=== PATIENT | female | born 1930 | race Caucasian/White ===

== ENCOUNTER 2019-09-05 10:28 | Emergency (ER) | payer MEDICARE, BC ==
--- NOTE | 2019-09-05 11:50 | EDM.PDOC ---
ED HPI GENERAL MEDICAL PROBLEM - General Chief Complaint: General Stated Complaint: fall from chair, hit head Time Seen by Provider: 09/05/19 11:06 Source of Information: Reports: Other History Limitations: Reports: Other (Cognitive impairment/mild dementia) - History of Present Illness INITIAL COMMENTS - FREE TEXT/NARRATIVE: Patient sent here from [facility] to be checked out after she slipped out of a chair to the ground. Did bump head on floor in process. Patient is without any complaints during initial interview. At one point she complained to the nurse that her buttocks were sore from a fall. Is pleasantly confused. Nurse did speak to patient's son and son has noticed that patient's dementia has been progressing. - Related Data Allergies Allergy/AdvReac Type Severity Reaction Status Date / Time Sulfa (Sulfonamide Allergy Itching Verified 09/05/19 10:35 Antibiotics) Home Meds: Home Meds Acetaminophen [Tylenol Arthritis] 650 mg PO TID PRN 03/20/18 [History] Amitriptyline [Elavil] 10 mg PO BEDTIME 03/20/18 [History] Donepezil [Aricept] 5 mg PO BEDTIME 03/20/18 [History] Glucosam/Chondr/Collagn/Hyalur [Glucosamine & Chondroitin Cap] 1 each PO DAILY 03/20/18 [History] Memantine [Namenda] 10 mg PO BID 03/20/18 [History] Multivitamin [Daily Multiple Vitamin] 1 tab PO DAILY 03/20/18 [History] Ubidecarenone [Coenzyme Q10] 100 mg PO DAILY 03/20/18 [History] Vit A/C/E/Zinc/Selenium/Copper [Vision Formula Tablet] 1 each PO DAILY 03/20/18 [History] Wheat Dextrin [Benefiber] 2 tbs PO DAILY 03/20/18 [History] dilTIAZem HCL [Diltiazem ER] 240 mg PO QAM 03/20/18 [History] Nystatin [Nystop] 1 applic TOP ASDIRECTED PRN 09/05/19 [History] OLANZapine [Olanzapine] 2.5 mg PO DAILY 09/05/19 [History] Sertraline HCl [Zoloft] 50 mg PO BEDTIME 09/05/19 [History] Past Medical History HEENT History: Reports: Hard of Hearing, Impaired Vision Cardiovascular History: Reports: Hypertension Musculoskeletal History: Reports: Osteoarthritis Neurological History: Reports: Other (See Below) (dementia) Psychiatric History: Reports: Dementia - Past Surgical History Musculoskeletal Surgical History: Reports: Shoulder Replacement ED ROS GENERAL - Review of Systems Review Of Systems: Comprehensive ROS is negative, except as noted in HPI. ED EXAM, GENERAL - Physical Exam Exam: See Below Exam Limited By: No Limitations General Appearance: Alert, WD/WN, No Apparent Distress Eye Exam: Bilateral Eye: EOMI, PERRL Ears: Normal External Exam, Normal Canal Nose: No: Nasal Deformity, Nasal Swelling, Nasal Drainage Throat/Mouth: Normal Lips, Normal Voice, No Airway Compromise Head: Atraumatic, Normocephalic. No: Facial Swelling, Facial Tenderness, Sinus Tenderness Neck: Normal Inspection, Supple, Non-Tender, Full Range of Motion. No: Tender Lateral, Tender Midline Respiratory/Chest: No Respiratory Distress, Lungs Clear, Normal Breath Sounds, No Accessory Muscle Use, Chest Non-Tender Cardiovascular: Normal Peripheral Pulses, Regular Rate, Rhythm, No Murmur GI/Abdominal: Normal Bowel Sounds, Soft, Non-Tender, No Distention (Female) Exam: Deferred Rectal (Female) Exam: Deferred Back Exam: Normal Inspection. No: Muscle Spasm, Paraspinal Tenderness, Vertebral Tenderness Extremities: Normal Inspection, Normal Range of Motion, Non-Tender, No Pedal Edema, Normal Capillary Refill Neurological: Alert, CN II-XII Intact, No Motor/Sensory Deficits, Confused Psychiatric: Normal Affect, Normal Mood Skin Exam: Warm, Dry, Intact, Normal Color, No Rash. No: Ecchymosis, Erythema Course - Vital Signs Last Recorded V/S: Last Vital Signs Temp 36.5 C 09/05/19 10:37 Pulse 78 09/05/19 10:37 Resp 18 09/05/19 10:37 BP 150/81 H 09/05/19 10:37 Pulse Ox 96 09/05/19 10:37 - Re-Assessments/Exams Free Text/Narrative Re-Assessment/Exam: 09/05/19 12:10 No focal findings on exam. No identified bruising on back/buttocks/upper legs. All limbs had good ROM. Patient able to transfer well from bed to wheelchair. OK to return to [facility]. They are to observe for any other changes/concerns and have patient follow up as needed. It was recommended to patient's son that patient likely needs higher level of care given progressive dementia. She is currently at assisted living facility. Departure - Departure Time of Disposition: 12:04 Disposition: Home, Self-Care 01 Condition: Good Clinical Impression: Fall from chair, initial encounter Dementia Qualifiers: Dementia type: unspecified type Dementia behavioral disturbance: without behavioral disturbance Qualified Code(s): F03.90 - Unspecified dementia without behavioral disturbance - Discharge Information *PRESCRIPTION DRUG MONITORING PROGRAM REVIEWED*: Not Applicable *COPY OF PRESCRIPTION DRUG MONITORING REPORT IN PATIENT KIKE: Not Applicable Referrals: PCP,Unknown [Primary Care Provider] - Forms: ED Department Discharge Additional Instructions: Continue to observe for changes/new complaints and follow up as needed. No specific injuries or acute changes identified on initial exam. Sepsis Event Note - Evaluation Sepsis Screening Result: No Definite Risk - Focused Exam Vital Signs: Vital Signs Temp Pulse Resp BP Pulse Ox 09/05/19 10:37 36.5 C 78 18 150/81 H 96 Date Exam was Performed: 09/05/19 Time Exam was Performed: 12:06
== END 2019-09-05 12:37 | disposition home or self-care (01) ==
LOC: LL.ED 10:28
DX: Z04.3 Encounter for examination and observation following other accident (principal); I10 Essential (primary) hypertension; M19.90 Unspecified osteoarthritis, unspecified site; F03.90 Unspecified dementia, unspecified severity, without behavioral disturbance, psychotic disturbance, mood disturbance, and anxiety; Z88.2 Allergy status to sulfonamides; Z79.899 Other long term (current) drug therapy
CPT/HCPCS: 99282; 99284; 99285

== ENCOUNTER 2019-09-28 10:33 | Emergency (ER) | payer MEDICARE, BC ==
[2019-09-28] MEDS: traMADol 50 MG Tab PO ONE (11:25)
--- NOTE | 2019-09-28 11:48 | EDM.PDOC ---
ED HPI GENERAL MEDICAL PROBLEM - General Chief Complaint: Lower Extremity Injury/Pain Stated Complaint: left pelvic pain Time Seen by Provider: 09/28/19 10:45 Source of Information: Reports: Patient, Half-Way Records History Limitations: Reports: Other (Dementia) - History of Present Illness INITIAL COMMENTS - FREE TEXT/NARRATIVE: Pt with pain in pelvis and left hip when standing or ambulating No pain when sitting or resting Has had several falls in past Has had multiple previous xrays and CT scan Onset: Gradual Duration: Day(s):, Intermittent Location: Reports: Lower Extremity, Left Quality: Reports: Ache Severity: Moderate Improves with: Reports: Immobilization Worsens with: Reports: Movement - Related Data Allergies Allergy/AdvReac Type Severity Reaction Status Date / Time Sulfa (Sulfonamide Allergy Itching Verified 09/28/19 11:09 Antibiotics) Home Meds: Home Meds Acetaminophen [Tylenol Arthritis] 650 mg PO TID PRN 03/20/18 [History] Amitriptyline [Elavil] 10 mg PO BEDTIME 03/20/18 [History] Donepezil [Aricept] 5 mg PO BEDTIME 03/20/18 [History] Glucosam/Chondr/Collagn/Hyalur [Glucosamine & Chondroitin Cap] 1 each PO DAILY 03/20/18 [History] Memantine [Namenda] 10 mg PO BID 03/20/18 [History] Multivitamin [Daily Multiple Vitamin] 1 tab PO DAILY 03/20/18 [History] dilTIAZem HCL [Diltiazem ER] 240 mg PO QAM 03/20/18 [History] Nystatin [Nystop] 1 applic TOP ASDIRECTED PRN 09/05/19 [History] OLANZapine [Olanzapine] 2.5 mg PO DAILY 09/05/19 [History] Sertraline HCl [Zoloft] 50 mg PO BEDTIME 09/05/19 [History] Ubidecarenone [Coenzyme Q10] 100 mg PO DAILY 09/28/19 [History] Past Medical History HEENT History: Reports: Hard of Hearing, Impaired Vision Cardiovascular History: Reports: Hypertension [employer] History: Reports: Musculoskeletal History: Reports: Osteoarthritis Neurological History: Reports: Other (See Below) Other Neuro History: Dementia Psychiatric History: Reports: Dementia - Past Surgical History Musculoskeletal Surgical History: Reports: Shoulder Replacement Social & Family History - Family History Family Medical History: Noncontributory - Tobacco Use Smoking Status *Q: Former Smoker Used Tobacco, but Quit: Yes Month/Year Tobacco Last Used: 1969 Second Hand Smoke Exposure: No - Caffeine Use Caffeine Use: Reports: Coffee - Recreational Drug Use Recreational Drug Use: No Review of Systems - Review of Systems Review Of Systems: See Below Respiratory: Reports: No Symptoms Cardiovascular: Reports: No Symptoms GI/Abdominal: Reports: No Symptoms Genitourinary: Reports: No Symptoms Musculoskeletal: Reports: Joint Pain ED EXAM, GENERAL - Physical Exam Exam: See Below General Appearance: Mild Distress GI/Abdominal: Soft, Non-Tender Extremities: Other (Left hip non-tender with palpation Increased pain with standing) Course - Vital Signs Last Recorded V/S: Last Vital Signs Temp 98.3 F 09/28/19 10:35 Pulse 88 09/28/19 10:55 Resp 20 09/28/19 10:35 BP 180/83 H 09/28/19 10:55 Pulse Ox 92 L 09/28/19 10:35 - Orders/Labs/Meds Orders: Active Orders 24 hr Category Date Time Status Hip Min 2V or 3V Lt [CR] Stat Exams 09/28/19 10:54 Taken Pelvis 1V or 2V [CR] Stat Exams 09/28/19 10:54 Ordered Labs: Laboratory Tests 09/28/19 Range/Units 10:55 Specimen Type Urinvoid Urine Color Yellow Urine Appearance Clear Urine pH 6.5 (5.0-9.0) Ur Specific [place] 1.015 (1.005-1.030) Urine Protein 100 H (NEGATIVE) mg/dL Urine Glucose (UA) Negative (NEGATIVE) mg/dL Urine Ketones Negative (NEGATIVE) mg/dL Urine Occult Blood Negative (NEGATIVE) Urine Nitrite Negative (NEGATIVE) Urine Bilirubin Negative (NEGATIVE) Urine Urobilinogen 0.2 (0.2-1.0) E.U./dL Ur Leukocyte Esterase Negative (NEGATIVE) Urine RBC Not seen /HPF Urine WBC Not seen /HPF Ur Epithelial Cells Rare /LPF Urine Yeast Few H (NEGATIVE) /HPF Meds: Medications Discontinued Medications Generic Name Dose Route Start Last Admin Trade Name Freq PRN Reason Stop Dose Admin Tramadol HCl 50 mg 09/28/19 11:14 09/28/19 11:25 Ultram PO 09/28/19 11:15 50 mg ONETIME ONE Administration - Re-Assessments/Exams Free Text/Narrative Re-Assessment/Exam: 09/28/19 11:46 See xray report Departure - Departure Time of Disposition: 11:55 Disposition: DC/Tfer to SNF 03 Clinical Impression: Pain in pelvis - Discharge Information *PRESCRIPTION DRUG MONITORING PROGRAM REVIEWED*: Not Applicable *COPY OF PRESCRIPTION DRUG MONITORING REPORT IN PATIENT KIKE: Not Applicable Instructions: Pelvic Pain, Female, [id number] Referrals: Laurita Vicente NP [Primary Care Provider] - Forms: ED Department Discharge Additional Instructions: Follow up in clinic Rx Tramadol 50 mg every 6 hours for pain Sepsis Event Note - Evaluation Sepsis Screening Result: No Definite Risk - Focused Exam Vital Signs: Vital Signs Temp Pulse Resp BP Pulse Ox 09/28/19 10:55 88 180/83 H 09/28/19 10:35 98.3 F 88 20 190/82 H 92 L Date Exam was Performed: 09/28/19 Time Exam was Performed: 11:43 - My Orders Last 24 Hours: My Active Orders 09/28/19 10:54 Hip Min 2V or 3V Lt [CR] Stat Pelvis 1V or 2V [CR] Stat - Assessment/Plan Last 24 Hours: My Active Orders 09/28/19 10:54 Hip Min 2V or 3V Lt [CR] Stat Pelvis 1V or 2V [CR] Stat
== END 2019-09-28 12:01 ==
LOC: LL.ED 10:33
DX: R10.2 Pelvic and perineal pain (principal); I10 Essential (primary) hypertension; F03.90 Unspecified dementia, unspecified severity, without behavioral disturbance, psychotic disturbance, mood disturbance, and anxiety; Z79.899 Other long term (current) drug therapy; Z88.2 Allergy status to sulfonamides; Z87.891 Personal history of nicotine dependence
CPT/HCPCS: 72170; 73502; 81001; 99285; A9270